=== PATIENT | male | born 1965 | race Caucasian/White ===

== ENCOUNTER 2018-07-02 18:12 | Emergency (ER) | payer MEDICAID ==
[2018-07-02] MEDS ORDERED: CLINDAMYCIN 150 MG CAP PO ONE (18:22)
[2018-07-02] MEDS ORDERED: NAPROXEN 250 MG TABLET PO ONE (18:22)
--- NOTE | 2018-07-02 18:33 | Emergency Department Record ---
History of Present Illness - General Chief complaint: Dental Stated complaint: DENTAL PAIN Time Seen by Provider: 07/02/18 18:15 Source: Patient Mode of Arrival: Ambulatory Limitations: No limitations - History of Present Illness Initial comments: The patient has L lower dental pain for 3 days. He denies any fever or trouble swallowing. The patient has had similar problems in the past but not as bad. There has been no facial pain, swelling, or PARK. MD complaint: Tooth pain Onset/Timin -: Days(s) Severity: Moderate Severity scale (1-10): 6 Quality: Aching Consistency: Constant, Intermittent - Related Data Previous Rx's Medication Instructions Recorded Albuterol Sulfate [Proair Hfa] 1 - 2 puff IH .EVERY 4-6 HOURS PRN 10/18/14 #1 inhaler Clindamycin HCl [Cleocin HCl] 300 mg PO QID #28 capsule 07/02/18 Naproxen [Naprosyn] 500 mg PO BID #14 tablet. 07/02/18 Allergies Allergy/AdvReac Type Severity Reaction Status Date / Time codeine Allergy RASH Verified 07/02/18 18:19 Penicillins Allergy RASH Verified 07/02/18 18:19 Travel Screening - Travel/Exposure Within Last 30 Days Have you traveled within the last 30 days?: No - Travel/Exposure Within Last Year Have you traveled outside the [place] in the last year?: No - Additonal Travel Details Have you been exposed to anyone with a communicable illness?: No - Travel Symptoms Symptom Screening: None Review of Systems Constitutional: Denies: Chills, Fever Eyes: Denies: Eye discharge ENT: Denies: Congestion Respiratory: Denies: Cough, Dyspnea Past Medical History - SOCIAL HISTORY Smoking Status: Light tobacco smoker (<10/day) Alcohol Use: Rare, Occasional Drug Use: None - RESPIRATORY Hx Respiratory Disorders: Yes Hx COPD: Yes Comment:: "dark spots on lungs" - CARDIOVASCULAR Hx Cardio Disorders: No - NEURO Hx Neuro Disorders: No - GI Hx GI Disorders: No Hx Liver Disease: Yes (Hepitis C) Comment:: ulcerative colitis - Hx Genitourinary Disorders: No - ENDOCRINE Hx Endocrine Disorders: No - MUSCULOSKELETAL Hx Musculoskeletal Disorders: No - PSYCH Hx Psych Problems: No - HEMATOLOGY/ONCOLOGY Hx Hematology/Oncology Disorders: No Family Medical History Any Significant Family History?: Yes Hx Stroke: Mother, Brother/Sister, Grandparents *Stroke Comment: anyrism Physical Exam - General General Appearance: Alert, Oriented x3, Cooperative, No acute distress - Head Head exam: Atraumatic, Normocephalic, Normal inspection - Eye Eye exam: Normal appearance, PERRL, EOMI - ENT ENT exam: Normal exam (There is no swelling, or erythema.) Teeth exam: Normal inspection, Dental tenderness # (17 and 18.), Other (There is no gum line swelling, or signs of abscess. The 2 teeth are very tender to percussion.). negative: Dental caries, Fractured tooth # Throat exam: Normal inspection. negative: Tonsillar erythema, Tonsillomegaly, Tonsillar exudate - Neck Neck exam: Normal inspection, Full ROM. negative: Lymphadenopathy, Meningismus , Tenderness - Respiratory Respiratory exam: Normal lung sounds bilaterally. negative: Respiratory distress - Cardiovascular Cardiovascular Exam: Regular rate, Normal rhythm, Normal heart sounds Course Vital Signs 07/02/18 18:17 Temperature 98.3 F Pulse Rate [ 88 Pulse Ox Probe] Respiratory 24 Rate Blood Pressure 145/92 [Left Arm] Pulse Ox 98 - Reevaluation(s) Reevaluation #1: I did explain to the patient the need for the oral abx's and pain medicines and F/U with a Dentist tomorrow. 07/02/18 18:31 Disposition Disposition: Discharge Clinical Impression: Pain, dental Disposition: Home, Self-Care Condition: (2) Stable Instructions: Toothache (ED) Additional Instructions: Please take the Clindamycin and Naprosyn as directed and please see a Dentist [facility]. Return to the ER for any worsening symptoms. Prescriptions: Clindamycin HCl [Cleocin HCl] 300 mg PO QID #28 capsule Naproxen [Naprosyn] 500 mg PO BID #14 tablet.dr Forms: Patient Portal Access Time of Disposition: 18:33 Quality - Quality Measures Quality Measures: N/A - Blood Pressure Screening View Details: Yes Does Patient Have Any of the Following: No Blood Pressure Classification: Hypertensive Reading Systolic Measurement: 145 Diastolic Measurement: 92 Screening for High Blood Pressure: < First Hypertensive BP, F/U Documented > [ G8950] First Hypertensive Follow-up Interventions: Referral to alternative/primary care provider.
== END 2018-07-02 18:37 | disposition home or self-care (01) ==
LOC: ER 18:12
DX: K08.89 Other specified disorders of teeth and supporting structures (principal); F17.210 Nicotine dependence, cigarettes, uncomplicated
CPT/HCPCS: 99282

== ENCOUNTER 2018-10-28 19:53 | Emergency (ER) | payer MEDICAID ==
[2018-10-28] MEDS ORDERED: MECLIZINE 25 MG TABLET PO ONE (20:07)
[2018-10-28] MEDS ORDERED: ONDANSETRON HCL IV 4 MG/2 ML VIAL IVP ONE (20:08)
[2018-10-28] MEDS ORDERED: 0.9 % SODIUM CHLORIDE 1,000 ML BAG IV ONE (20:08)
--- NOTE | 2018-10-28 20:09 | Emergency Department Record ---
History of Present Illness - General Chief Complaint: Dizziness Stated Complaint: DIZZY Time Seen by Provider: 10/28/18 19:54 Source: Patient, EMS Mode of Arrival: Stretcher Limitations: No limitations - History of Present Illness Initial Comments: 53 yo male presents with dizziness by EMS. He states he has had nearly constant dizziness for 6 years. He has seen his doctor in [place]. He states he has undergone testing without any abnormalities. He states his dizziness for the last few weeks has been worse. He was at his friends house [facility] and EMS was called by his friends due to the dizziness. He has a chronic cough. No vomiting or diarrhea. No fever. No vision changes. No recent falls or injury. He did report he was around pets [employer] causing him to cough, wheeze that made him dizzy. MD Complaint: Dizziness -: Year(s) (6) Timing: Gradual onset, Constant Description: Difficulty walking, Lightheadedness History of Same: Yes History of Trauma: No Severity: Moderate Improves With: Remaining still Worsens With: Movement, Position Associated Symptoms: Cough - [place] Coma Scale Eye Response: (4) Open spontaneously Motor Response: (6) Obeys commands Verbal Response: (5) Oriented [place] Total: 15 - Related Data Previous Rx's Medication Instructions Recorded Albuterol Sulfate [Proair Hfa] 1 - 2 puff IH .EVERY 4-6 HOURS PRN 10/18/14 #1 inhaler Allergies Allergy/AdvReac Type Severity Reaction Status Date / Time codeine Allergy RASH Verified 10/28/18 19:55 Penicillins Allergy RASH Verified 10/28/18 19:55 Review of Systems Constitutional: Denies: Chills, Fever, Malaise, Weakness Eyes: Denies: Eye discharge, Eye pain, Photophobia, Vision change ENT: Reports: Congestion Respiratory: Reports: Cough, Wheezes Cardiovascular: Denies: Chest pain, Dyspnea on exertion, Palpitations, Syncope Endocrine: Denies: Fatigue Gastrointestinal: Reports: Nausea. Denies: Abdominal pain, Diarrhea, Vomiting Genitourinary: Denies: Dysuria, Frequency, Hematuria Musculoskeletal: Denies: Arthralgia, Back pain, Joint swelling, Myalgia Skin: Denies: Bruising, Change in color, Rash Neurological: Reports: Vertigo. Denies: Headache, Numbness, Weakness Psychiatric: Denies: Anxiety Hematological/Lymphatic: Denies: Blood Clots, Easy bleeding, Easy bruising, Swollen glands Past Medical History - SOCIAL HISTORY Smoking Status: Light tobacco smoker (<10/day) Drug Use: None - RESPIRATORY Hx Respiratory Disorders: Yes Hx COPD: Yes Comment:: "dark spots on lungs" - CARDIOVASCULAR Hx Cardio Disorders: No - NEURO Hx Neuro Disorders: No - GI Hx GI Disorders: No Hx Liver Disease: Yes (Hepitis C) Comment:: ulcerative colitis - Hx Genitourinary Disorders: No - ENDOCRINE Hx Endocrine Disorders: No - MUSCULOSKELETAL Hx Musculoskeletal Disorders: No - PSYCH Hx Psych Problems: No - HEMATOLOGY/ONCOLOGY Hx Hematology/Oncology Disorders: No Family Medical History Hx Stroke: Mother, Brother/Sister, Grandparents *Stroke Comment: anyrism Physical Exam - General General Appearance: Alert, Oriented x3, Cooperative, No acute distress Limitations: No limitations - Head Head exam: Atraumatic, Normal inspection - Eye Eye exam: Normal appearance, PERRL, EOMI. negative: Conjunctival injection, Nystagmus, Periorbital swelling, Scleral icterus - ENT ENT exam: Normal exam, Mucous membranes moist, Normal orophraynx Ear exam: Normal external inspection Nasal Exam: Normal inspection Mouth exam: Normal external inspection - Neck Neck exam: Normal inspection - Respiratory Respiratory exam: Normal lung sounds bilaterally, Wheezes (few scattered), Other (occasional cough with scattered wheeze). negative: Accessory muscle use , Decreased breath sounds, Prolonged expiratory, Respiratory distress, Rhonchi, Stridor - Cardiovascular Cardiovascular Exam: Regular rate, Normal rhythm, Normal heart sounds Peripheral Pulses: 2+: Radial (R), Radial (L) - GI/Abdominal GI/Abdominal exam: Soft. negative: Tenderness - Rectal Rectal exam: Deferred - exam: Deferred - Extremities Extremities exam: Normal inspection, Full ROM, Normal capillary refill. negative: Tenderness - Back Back exam: Denies: CVA tenderness (R), CVA tenderness (L) - Neurological Neurological exam: Alert, CN II-XII intact, Oriented X3, Reflexes normal, Other (No drift, ). negative: Motor sensory deficit - Psychiatric Psychiatric exam: Normal affect, Normal mood - Skin Skin exam: Dry, Intact, Normal color, Warm Course - Reevaluation(s) Reevaluation #1: 10/28/18 20:34 No acute changes on the CBC 10/28/18 21:00 No acute changes on the CMP, TSH, Alcohol, Tylenol or Aspirin levels. 10/28/18 21:37 The CXR was negative with no changes from prior The HCT was negative with no changes from prior 10/28/18 21:55 On recheck the patient's breathing and dizziness are greatly improved We discussed all his current results 10/28/18 22:22 The UDS is positive for methamphetamine and cocaine 10/28/18 22:30 The patient continues to do well. He ate a meal, no return of dizziness. He has a reliable ride and place to go. No signs of ongoing impairment from the drugs, the work up unremarkable for significant abnormalities. Medical Decision Making - Lab Data Result diagrams: 10/28/18 20:20 10/28/18 20:20 Disposition Disposition: Discharge Clinical Impression: Dizziness, Substance abuse Disposition: Home, Self-Care Condition: (1) Good Instructions: Dizziness (ED) Additional Instructions: Rest and stay well hydrated Avoid and alcohol or drugs Call your doctor for a recheck first or the week Forms: Patient Portal Access Time of Disposition: 22:32 Quality - Quality Measures Quality Measures: N/A - Blood Pressure Screening Does Patient Have Any of the Following: No Blood Pressure Classification: Pre-Hypertensive BP Reading Systolic Measurement: 136 Diastolic Measurement: 86 Screening for High Blood Pressure: < Pre-Hypertensive BP, F/U Documented > [ G8950] Pre-Hypertensive Follow-up Interventions: Referral to alternative/primary care provider.
[2018-10-28] MEDS ORDERED: IPRATROPIUM/ALBUTEROL (0.5MG/3MG) NEB INH ONE (20:29)
[2018-10-28] MEDS ORDERED: METHYLPREDNISOLONE PF 125MG/VIAL IVP ONE (20:30)
[2018-10-28 20:31] LABS: BASO % 0.3 % (0-6); EOS % 2.1 % (0-6); GRAN % 48.2 % (47-80); HEMATOCRIT 43.6 % (42.0-52.0); HEMOGLOBIN 14.9 gm/dl (14.0-18.0); LYMPH % 39.7 % (16-45); MEAN CELL VOLUME 91.2 fl (81-97); MEAN CORPUSCULAR HEMOGLOBIN 31.2 pg (27-33); MEAN CORPUSCULAR HGB CONC 34.2 g/dl (32-36); MONO % 9.7 % (0-9); PLATELET COUNT 326 K/uL (130-400); RED BLOOD COUNT 4.78 M/uL (4.40-5.70); WHITE BLOOD COUNT W/O DIFF 7.1 K/uL (4.2-12.2)
[2018-10-28 20:41] LABS: BLOOD UREA NITROGEN 12 mg/dL (6-20); CREATININE 0.7 mg/dL (0.7-1.2); EST GLOMERULAR FILTRATION RATE > 60 mL/min; TOTAL PROTEIN 6.9 g/dL (6.6-8.7)
[2018-10-28 20:43] LABS: GLUCOSE,RANDOM 108 mg/dL (74-109)
[2018-10-28 20:46] LABS: ALB/GLOB RATIO 1.5 (1.1-1.8); ALBUMIN 4.1 g/dL (4.0-5.0); ALKALINE PHOSPHATASE 109 U/L (55-149); ALT/SGPT 26 U/L (<41); AST/SGOT 21 U/L (10.0-50.0)
[2018-10-28 20:48] LABS: ACETAMINOPHEN < 5.0 ug/mL (10.0-30.0); SALICYLATE 0.9 mg/dL (2.8-20)
[2018-10-28 20:57] LABS: THYROID STIMULATING HORMONE 0.89 uIU/mL (0.270-4.20)
[2018-10-28 21:56] LABS: URINE APPEARANCE CLEAR; URINE BILIRUBIN NEGATIVE (NEGATIVE); URINE BLOOD NEGATIVE (NEGATIVE); URINE COLOR YELLOW; URINE GLUCOSE (UA) NEGATIVE (NEGATIVE); URINE KETONE NEGATIVE (NEGATIVE); URINE LEUKOCYTE ESTERASE NEGATIVE (NEGATIVE); URINE NITRITE NEGATIVE (NEGATIVE); URINE PROTEIN NEGATIVE (NEGATIVE); URINE UROBILINOGEN 0.2 E.U./dL (0.20 - 1.00)
[2018-10-28 22:00] LABS: BARBITURATE SCREEN URINE NOT DETECTED; BENZODIAZEPINE SCREEN URINE NOT DETECTED; METHADONE SCREEN URINE NOT DETECTED; TRICYCLIC ANTIDEPRESSANT SCRN NOT DETECTED
[2018-10-28 22:01] LABS: AMPHETAMINE SCREEN URINE DETECTED; COCAINE SCREEN URINE DETECTED; METHAMPHETAMINE SCREEN DETECTED; OPIATE SCREEN URINE NOT DETECTED; OXYCODONE SCREEN URINE NOT DETECTED; PHENCYCLIDINE SCREEN URINE NOT DETECTED; PROPOXYPHENE SCREEN URINE NOT DETECTED; THC SCREEN URINE NOT DETECTED
--- NOTE | 2018-10-30 10:19 | RADIOLOGY REPORT ---
EXAM: CHEST, TWO VIEWS HISTORY: CONFUSION. DECREASED LEVEL OF THE CONSCIOUSNESS. TECHNIQUE: Upright AP and lateral views of the chest were obtained. Comparison: Two view chest radiographic examination dated 10/18/14. FINDINGS: The heart is not enlarged and the pulmonary vasculature is nondilated. Linear scarring is again noted in the lateral left lung base. Bilateral nipple shadows are noted on the frontal view. No lung consolidation, costophrenic angle blunting or pneumothorax. Mild levoconvex scoliosis of the thoracic spine redemonstrated. IMPRESSION: NO EVIDENCE OF ACUTE CARDIOPULMONARY DISEASE. LINEAR SCARRING AGAIN NOTED IN THE LATERAL LEFT LUNG BASE. JOB NUMBER: [id number] [facility]
--- NOTE | 2018-10-30 10:31 | CT SCAN REPORT ---
EXAM: CT OF THE HEAD WITHOUT CONTRAST HISTORY: CONFUSION. TECHNIQUE: Routine noncontrast CT examination of the head was performed. Comparison: CT of the head without contrast dated 12/31/11. FINDINGS: The ventricles and subarachnoid spaces remain normal in appearance. There is a questionable minimal subcortical lucency within the lateral aspect of the right precentral gyrus. This was likely present on the prior examination. It is nonspecific though likely gliosis. No new area of abnormally increased or decreased attenuation is noted throughout the brain substance. No abnormal extraaxial fluid collection. There is mild mucosal thickening in the floor of the left maxillary sinus. The visualized paranasal sinuses and mastoid air cells are otherwise clear. The orbits as visualized are unremarkable. IMPRESSION: 1. NO CT EVIDENCE OF AN ACUTE INTRACRANIAL ABNORMALITY WITHOUT SIGNIFICANT CHANGE SINCE 12/31/11. SUBTLE SMALL AREA OF LUCENCY IN THE SUBCORTICAL LATERAL ASPECT OF THE RIGHT PRECENTRAL GYRUS. THIS IS LIKELY NONSPECIFIC GLIOSIS. 2. MINOR MUCOSAL THICKENING IN THE LEFT MAXILLARY SINUS. JOB NUMBER: [id number] [facility]
== END 2018-10-28 22:54 | disposition home or self-care (01) ==
LOC: ER 19:53
DX: R42 Dizziness and giddiness (principal); R41.0 Disorientation, unspecified; R05 Cough; F15.10 Other stimulant abuse, uncomplicated; F14.10 Cocaine abuse, uncomplicated; R26.2 Difficulty in walking, not elsewhere classified; J44.9 Chronic obstructive pulmonary disease, unspecified; F17.210 Nicotine dependence, cigarettes, uncomplicated
CPT/HCPCS: 70450; 71046; 80053; 80305; 80320; 80329; 81003; 84443; 85025; 94640; 96361; 96374; 96375; 99284; J2405; J2930; J7030